=== PATIENT | male | born 1970 | race Caucasian/White ===

== ENCOUNTER 2016-10-30 14:19 | Emergency (ER) | payer SELFPAY ==
[~2016-10-30] VITALS: Ht 188 cm; Wt 95.0 kg
[2016-10-30] MEDS ORDERED: ZIPRASIDONE 20 MG INJ IM ONE ×2 (15:30→16:04)
[2016-10-30] MEDS ORDERED: SODIUM CHLORIDE 0.9% 1,000ML IVBOLUS ONE (15:30)
[2016-10-30] MEDS ORDERED: ONDANSETRON 2MG/ML, 2ML IVPush ONE (15:30)
[2016-10-30 15:53] LABS: ASPARTATE AMINO TRANSFERASE 24 U/L (15-37); BLOOD UREA NITROGEN 24 mg/dL (7-18)
[2016-10-30] MEDS ORDERED: HYDROmorphone 1 MG/ML, 1ML ONE ×2 (16:03→17:18)
[2016-10-30] MEDS ORDERED: ONDANSETRON 2MG/ML, 2ML ONE (16:03)
[2016-10-30] MEDS: HYDROmorphone 1 MG/ML, 1ML IVPush PRN ×2 (16:17→17:25)
[2016-10-30 17:25] VITALS: BP 135/74
== END 2016-10-30 18:17 | disposition home or self-care (01) ==
LOC: ED 18:11
DX: R10.84 Generalized abdominal pain (principal); F17.210 Nicotine dependence, cigarettes, uncomplicated; G43.A0 Cyclical vomiting, in migraine, not intractable
CPT/HCPCS: 36415; 80053; 81001; 85025; 87086; 96361; 96372; 96374; 96375; 96376; 99285; J1170; J2405; J3486; J7030